=== PATIENT | male | born 1955 | race Caucasian/White ===

== ENCOUNTER → 2017-05-07 | Outpatient (CLI) | payer OTHER ==
--- NOTE | 2017-05-08 07:19 | CONS ---
CONSULTATION DATE OF SERVICE: 05/07/2017 A 62-year-old gentleman who has been evaluated in the sleep center for possible obstructive sleep apnea-hypopnea syndrome. HISTORY OF PRESENT ILLNESS/SLEEP WAKE EVALUATION: SLEEP SCHEDULE: Patient usual sleep schedule on working days from 8:30 p.m. until 4:15 to 4:30 a.m. On weekends, he sleeps from 10 p.m. until 7 a.m. FALLING ASLEEP: No problems with falling asleep. No TV in bedroom. DURING SLEEP: Patient sleeps usually on the side position with loud snoring and witnessed episodes of stopped breathing during the sleep by his . He wakes up from sleep 3 times with episodes of gasping for air and dry mouth. DURING THE DAY/WAKE STATE: In the morning he wakes up tired, has difficulties to pay attention. [place] Sleepiness Scale is 5. PAST MEDICAL HISTORY: Basically negative according to patient. PAST SURGICAL HISTORY: None. SOCIAL HISTORY: Negative for smoking. Alcohol consumption 2 beers with dinner. REVIEW OF SYSTEMS: Awakenings from sleep, sometimes sleepiness during the day. No fevers. No double vision. No recent chest pain. No shortness of breath. No abdominal pain. No bleeding episodes. No blood in urine. No seizure episodes. FAMILY HISTORY: Breast cancer. PHYSICAL EXAM: During physical exam, patient in no distress. VITAL SIGNS: BP 165/83, HR 80, RR 16, height 5 feet 10 inches, weight 198, BMI 28.4. Neck 17-1/2 inches in circumference. Temp 98.2. Oxygen saturation room air 96%. HEENT: PERRLA, EOMI. Oropharynx extremely low position of soft palate. Mallampati 4. Significant restriction of nasal breathing bilaterally and some redness of the face. NECK: Supple, no JVD. Thyroid is not palpable. LUNGS: Clear to percussion and to auscultation. Good air exchange. No wheezing or rhonchi. HEART: S1, S2 regular. No murmurs, gallops, or rubs. ABDOMEN: Soft and nontender. Bowel sounds are present. No organomegaly appreciated. EXTREMITIES: No clubbing or cyanosis. SAS ETL DEVELOPER: Awake, alert, and oriented X3. Cranial nerves 2 to 7 intact. There is no fasciculation or atrophy. noted. No focal deficits observed. IMPRESSION: 1. Snoring, witnessed episodes of stopped breathing during the sleep, extremely low position of soft palate, wide neck, restriction of nasal breathing, multiple awakenings from sleep, obstructive sleep apnea-hypopnea syndrome. 2. Significant restriction of nasal breathing bilaterally. 3. Hypertension in the office, blood pressure 165/83. 4. Some overweight, overweight, BMI 28.4. PLAN: 1. Polysomnography for evaluation of patient's breathing during sleep. 2. CPAP/BiPAP titration if sleep study confirms obstructive sleep apnea-hypopnea syndrome. 3. Preferable position during sleep on the side. 4. No driving if patient feels any sleepiness. Patient is aware of civil and criminal liability for unsafe driving. 5. I will see patient for follow up visit to explain results of testing and following plan. Thank you very much for referring this patient for consultation. Sincerely, Troy Steve MD, PhD, FAASM Diplomat of [employer] Beverage Server of [facility] [place] MMODL / LORENN: [id number] /
== END | disposition home or self-care (01) ==
LOC: SLEEP 15:08
PROVIDERS: ATTEND Internal Medicine
DX: G47.33 Obstructive sleep apnea (adult) (pediatric) (principal); I10 Essential (primary) hypertension; E66.3 Overweight; Z68.28 Body mass index [BMI] 28.0-28.9, adult; Z80.3 Family history of malignant neoplasm of breast
CPT/HCPCS: 99211

== ENCOUNTER → 2017-10-29 | Outpatient (CLI) | payer OTHER ==
--- NOTE | 2017-10-29 18:58 | PN ---
PROGRESS NOTE DATE OF SERVICE: 10/29/2017 A 62-year-old gentleman has been followed in sleep center for treatment of obstructive sleep apnea-hypopnea syndrome. Recently patient had polysomnogram and CPAP titration and I explained the results of sleep studies to patient in detail. He has severe sleep apnea with apnea-hypopnea index 49.5 and oxygen desaturation to 79%, which was corrected with CPAP. Subsequently, he was recommended to start treatment with CPAP. The patient received his CPAP unit, started to use it and he is able to use it every night without significant problems. According to patient, he sleeps much better with CPAP and feels much better during the day. [place] Sleepiness Scale is only 1. I checked his CPAP unit. CPAP pressure is 11 cm of water. Usage is 29/30 nights and 22/30 nights more than 4 hours, average 5.5 hours. Leak is 32 L/minute which is borderline. Apnea-hypopnea index 4.0 for the last month and 0.6 for the last night. Patient explained that he adjusted his mask because he has dillon and mustache and after adjustments, his leaks usually decreased. MEDICATIONS: None. PHYSICAL EXAMINATION: GENERAL Patient in no distress. VITAL SIGNS BP 135/79, HR 67, RR 16, weight 194.6, temp 97.9, oxygen saturation at room air 95%. HEENT PERRLA, EOMI, evaluation of oropharynx showed tongue protrudes midline, low position of soft palate. Neck Supple, no JVD. Thyroid is not palpable. LUNGS Clear to percussion and to auscultation. Good air exchange. No wheezing or rhonchi. HEART S1, S2 regular. No murmurs, gallops, or rubs. ABDOMEN Soft and nontender. Bowel sounds are present. No organomegaly appreciated. EXTREMITIES No clubbing or cyanosis. CONTAINER WASHER Awake, alert, and oriented X3. Cranial nerves 2 to 7 intact. There is no fasciculation or atrophy. noted. No focal deficits observed. IMPRESSION: 1. Severe obstructive sleep apnea-hypopnea syndrome. Patient demonstrated great compliance with treatment, benefitting from treatment. 2. History of hypertension in the office. 3. Some restriction of nasal breathing. PLAN: 1. Patient will continue to use CPAP equipment every night for the whole night. 2. Sleep hygiene with regular time in bed for least 8 hours. 3. No driving if feeling sleepiness. 4. We will follow up with a prescription for all necessary CPAP supplies including mask, tube, filters. 5. Followup visit in 1 year or earlier if patient has any problems. Thank you very much for allowing me to participate in management of your patient. Sincerely, Troy Steve MD, PhD, FAASM Diplomat of [employer] Medicine [place] Supervisor of [facility] [place] MMODL / IJN: [id number] /
== END | disposition home or self-care (01) ==
LOC: SLEEP 16:27
PROVIDERS: ATTEND Internal Medicine
DX: G47.33 Obstructive sleep apnea (adult) (pediatric) (principal); I10 Essential (primary) hypertension; Z99.89 Dependence on other enabling machines and devices

== ENCOUNTER → 2018-10-27 | Outpatient (CLI) | payer OTHER ==
--- NOTE | 2018-10-27 18:56 | PN ---
PROGRESS NOTE DATE OF SERVICE: 10/27/2018 This patient is a 63-year-old gentleman who has been followed in Sleep Center for treatment of obstructive sleep apnea-hypopnea syndrome. The patient continues to use his CPAP equipment every night for the whole night without significant problems. [place] Sleepiness Scale is 3. During the previous visit, he had a significant leak from the machine, and since that time his mask has been adjusted. I checked the patient's CPAP unit. CPAP pressure is 11 cm of water. Usage is every night, and 25/30 nights for more than 4 hours. Average usage is 6.1 hours per night. Leak is 18 L/minute, which is borderline. Apnea-hypopnea index is 1.7, which is absolutely normal, and better than during his previous visit. MEDICATIONS: None. PHYSICAL EXAMINATION: GENERAL: A pleasant patient in no distress. VITAL SIGNS: BP 140/81, HR 63, RR 16, height 6 feet 0 inches, weight 196 pounds. Body mass index 26.5. The patient's weight increased by about 1-1/2 pounds compared to the previous visit. Oxygen saturation at room air 97%. HEENT: PERRLA, EOMI. Evaluation of oropharynx showed tongue protrudes midline. Low position of soft palate. NECK: Supple. No JVD. Thyroid is not palpable. Neck measures 17-1/2 inches in circumference. LUNGS: Clear to percussion and to auscultation. Good air exchange. No wheezing or rhonchi. HEART: S1, S2 regular. No murmurs, gallops or rubs. ABDOMEN: Soft and nontender. Bowel sounds are present. No organomegaly. EXTREMITIES: No clubbing or cyanosis. CLUTCH SPECIALIST: Awake, alert, and oriented X3. Cranial nerves 2 to 7 intact. There is no fasciculation or atrophy. noted. No focal deficits observed. IMPRESSION: 1. Severe obstructive sleep apnea-hypopnea syndrome. Patient has demonstrated great compliance with treatment, benefitting from treatment. 2. History of hypertension in the office in the past; borderline blood pressure. 3. Restriction of nasal breathing on the right side. PLAN: 1. Prescription for all necessary CPAP supplies, including mask, tube, filters. 2. Watching weight. 3. Sleep hygiene with regular time bed for at least 8 hours. 4. No driving if feeling any sleepiness. 5. Follow-up visit in one year, or earlier if the patient has any problems. Thank you very much for allowing me to participate in the management of your patient. Sincerely, Troy Steve MD, PhD, FAASM Diplomat of [employer] Board of Internal Medicine [place] Clerk of [facility] [place] MMODL / LORENN: [id number] /
== END | disposition home or self-care (01) ==
LOC: SLEEP 16:20
PROVIDERS: ATTEND Internal Medicine
DX: G47.33 Obstructive sleep apnea (adult) (pediatric) (principal); R03.0 Elevated blood-pressure reading, without diagnosis of hypertension; J98.8 Other specified respiratory disorders; Z99.89 Dependence on other enabling machines and devices

== ENCOUNTER → 2021-06-26 | Outpatient (CLI) | payer OTHER ==
--- NOTE | 2021-06-26 20:21 | SFUN ---
SLEEP CENTER FOLLOW UP NOTE DATE OF SERVICE: 06/26/2021 66-year-old who has been followed in Sleep Center for treatment of obstructive sleep apnea-hypopnea syndrome. Patient continued to use his CPAP equipment every night but recently his machine become very noisy and his even cannot stay in the same room with him because machine is very noisy and this is the reason why for last several nights patient was not able to use it. I checked CPAP unit. Pressure is 11 cm of water. Usage is 19/30 nights and 10/30 nights for more than 4 hours. Average usage 4.5 hours per night. Leak is 16 L/minute, which is borderline. Apnea-hypopnea index is only 1.5, so normal respiration while patient using CPAP. [place] Sleepiness Scale is 4. I discussed with the patient position of the machine. Presently machine staying higher than his head and tube was not directly goes from the machine to the mask, is bending down, which possibly could be the reason for condensation of water in the tube and subsequently additional noise. Tube which patient has is not heated. The condition of air filter is acceptable. MEDICATIONS: None. PHYSICAL EXAMINATION: GENERAL: Patient in no distress. BP 99/61, HR 71, weight 188.6, which is on 8 pounds less than during the last visit. Temperature 97.8, oxygen saturation at room air 95%. Oropharynx: Low position of soft palate. NECK: Supple, no JVD. Thyroid is not palpable. LUNGS: Clear to percussion and to auscultation. Good air exchange. No wheezing or rhonchi. HEART: S1, S2 regular. No murmurs, gallops, or rubs. ABDOMEN: Soft and nontender. Bowel sounds are present. No organomegaly appreciated. EXTREMITIES: No clubbing or cyanosis. COFFEE FARMER: Awake, alert, and oriented X3. Cranial nerves 2 to 7 intact. There is no fasciculation or atrophy. noted. No focal deficits observed. IMPRESSION: 1. Severe obstructive sleep apnea-hypopnea syndrome. Recently the patient machine became noisy. This possibly could be related to wrong position of the machine and condensation of water in the tube. Apnea-hypopnea index normal while reading information from CPAP. 2. History of hypertension in the office in the past, presently normal blood pressure. 3. Restriction of nasal breathing. PLAN: 1. Machine should stay lower than patient head. 2. Prescription for heated tube. 3. I taught the patient how to adjust the level of humidity in the humidifier and level of heating in the tube. 4. Prescription to check if necessary to replace CPAP unit because of the noise. 5. Patient will continue to use PAP equipment every night for the whole night. 6. Sleep hygiene with regular time in bed for at least 7-1/2 to 8 hours. 7. Precautions related to driving. No driving if feeling sleepiness. 8. I will maintain all necessary prescription for PAP supplies including mask, tube, filters. 9. Watching weight. 10.Follow-up visit in 6 months or earlier if patient has any problems. 11.If the patient will get new machine, followup visit to get compliancy with a new machine in the 30-90 days after getting a new machine. Thank you very much for allowing me to participate in management of your patient. Sincerely, Troy Steve MD, PhD, FAASM Diplomat of [employer] Sleep Medicine Board of [place] [employer] Medicine Snubber of [facility] [place] MMODL / DEANA: [id number] /
== END ==
LOC: SLEEP 15:56
PROVIDERS: ATTEND Internal Medicine
DX: G47.33 Obstructive sleep apnea (adult) (pediatric) (principal); R06.89 Other abnormalities of breathing; Z99.89 Dependence on other enabling machines and devices

== ENCOUNTER → 2023-02-12 | Outpatient (CLI) | payer OTHER ==
--- NOTE | 2023-02-12 17:08 | P.PN ---
Subjective DATE: 02/12/2023 FOLLOW UP VISIT. Patient with obstructive sleep apnea hypopnea syndrome return to sleep center for follow-up visit. Information from previous visit have been reviewed. Patient was not able to use his CPAP equipment because his CPAP unit doesn't work well. The patient does not have significant problems with the mask, PAP unit and humidification. [place] sleepiness scale is 1, which is normal. I checked information from PAP unit. PAP unit pressure 11 cm H2O. Apnea Hypopnea Index was 5.3, which is borderline, on patient uses CPAP about 1 year ago. MEDICATIONS:1. Lisinopril During physical exam: GENERAL: A pleasant patient without any distress. VITAL SIGNS: BP 112/72, HR 63, RR 14, weight 183.0, temperature 97.7, oxygen saturation at room air 95 % . HEENT: PERRLA, EOMI.low position of soft palate, Mallapati 3 . NECK: Supple. No JVD. LUNGS: Clear to percussion and to auscultation. Good air exchange. No wheezing or rhonchi. HEART: S1, S2 regular. ABDOMEN: Soft and nontender.[] EXTREMITIES: No clubbing or cyanosis. ASSET PROTECTION MANAGER: Awake, alert, and oriented x3. No focal deficit. Impressions: 1. Obstructive sleep apnea-hypopnea syndrome. Patient did not use CPAP recently, because his CPAP unit doesn't work well. 2. Hypertension. 3. Restriction of nasal breathing. Plan: 1. Continue using PAP equipment every night for the whole night. Prescription to replace CPAP unit to AutoPAP with pressure 6-14 centimeters of water. 2. To change air filter at least 1-2 times per month. 3. PAP unit should stay lower then position of the head. 4. Advised patient to remove all remaining water from humidifier canister daily and make it dry after each usage. Refill canister with fresh distilled water before each usage. 5. Sleep hygiene with regular time in bed for at least 8 hours. 6. Precautions related to driving. No driving if feel any sleepiness. 7. I will maintain prescription for PAP supplies including mask, tube, filters. 8. Follow up visit in 12 months after patient will get new CPAP unit to leave clinical response on treatment, compliance with treatment and make in this adjustments. 9. Watching weight. Thank you very much for allowing me to participate in the management of your patient. Troy Steve MD, PhD, FAASM. Diplomat of [place] [employer], Sleep Medicine Board by [place] Group President of [facility] [place]
== END ==
LOC: 3 N SLEEP 15:27
PROVIDERS: ATTEND Internal Medicine
DX: G47.33 Obstructive sleep apnea (adult) (pediatric) (principal); I10 Essential (primary) hypertension; Z79.899 Other long term (current) drug therapy; Z99.89 Dependence on other enabling machines and devices